=== PATIENT | male | born 1945 | race Caucasian/White ===

== ENCOUNTER 2023-01-08 11:35 | Inpatient (IN) | payer MEDICARE, MEDICAID ==
[~2023-01-08 11:35] MED LIST: Iopamidol-370 76% 500 ML 1 ML ONE
[2023-01-08] MEDS ORDERED: Clopidogrel Bisulfate 75 MG TAB ONE (12:19)
[2023-01-08] MEDS ORDERED: Aspirin 325 MG TAB ONE (12:19)
[2023-01-08 12:25] LABS: #Lymphocytes 0.9 thou/uL (1.20-3.40); #Monocytes 0.5 thou/uL (0.11-0.59); #Neutrophils 10.6 thou/uL (1.40-6.50); %Basophils 0.1 % (0.0-1.0); %Eosinophils 0.4 % (0.0-10.0); %Lymphocytes 7.3 % (21.0-51.0); %Monocytes 4.4 % (0.0-10.0); %Neutrophils 87.8 % (42.0-75.0); Mean Corpuscular Hemoglobin 32.2 pg (27.0-31.0); Mean Corpuscular Volume 94.7 fl (78.0-98.0); Mean Platelet Volume 8.1 fL (7.4-10.4); Platelet Count 199 10x3/uL (130-400); Red Blood Cell (RBC) Count 4.02 mill/uL (4.70-6.10); White Blood Cell (WBC) Count 12.1 10x3/uL (4.8-10.8)
[2023-01-08 12:49] LABS: ALT (SGPT) 15 U/L (8-55); AST (SGOT) 16 U/L (5-34); Albumin 3.5 g/dL (3.4-4.8); Alkaline Phosphatase 63 U/L (40-110); Anion Gap 12 mmol/L (10-20); BUN (Urea Nitrogen) 23 mg/dL (8.4-25.7); Bilirubin, Total 0.9 mg/dL (0.2-1.2); CK (CPK) 73 U/L (30-200); Calc. Creatinine Clearance 0 mL/min (70-130); Calcium 8.2 mg/dL (7.8-10.44); Carbon Dioxide 26 mmol/L (23-31); Chloride 100 mmol/L (98-107); Estimated GFR 89; Globulin 2.3 g/dL (2.4-3.5); Glucose 108 mg/dL (83-110); Lipase 14 U/L (8-78); Protein, Total 5.8 g/dL (5.8-8.1); Sodium 135 mmol/L (136-145)
[2023-01-08 13:07] LABS: CKMB 1.9 ng/mL (0-6.6)
[2023-01-08] MEDS ORDERED: Potassium Chloride 20 MEQ TAB ONE (13:28)
[2023-01-08] MEDS ORDERED: Acetaminophen 325 MG TAB PO PRN (14:25)
[2023-01-08 15:13] LABS: Hemoglobin A1c 5.1 % (4.0-6.0)
[2023-01-08 15:22] LABS: Iron 21 ug/dL (65-175); Iron Binding Capacity, Total 248 mcg/dL (261-462); Magnesium 1.5 mg/dL (1.6-2.6); Phosphorus 2.5 mg/dL (2.3-4.7)
[2023-01-08 15:27] LABS: Bilirubin Negative (Negative); Blood, Urine Negative (Negative); Clarity Clear (Clear); Glucose, Urine (Dipstick) Normal (Negative); Ketone, Urine Negative (Negative); Leukocyte Negative Leu/uL (Negative); Nitrite Negative (Negative); Protein, Urine (Dipstick) Negative (Neg-Trace); Specific Gravity, Urine 1.045 (1.002-1.036); Urobilinogen Normal mg/dL (Less than 2)
[2023-01-08] MEDS ORDERED: Magnesium 2 GM/50 ML(in water) 2 GM in Premix Bag 1 BAG IVPB SCH (15:30)
[2023-01-08 15:36] LABS: Ferritin 307.85 ng/mL (22-322); Thyroid Stimulating Hormone 2.8568 uIU/mL (0.35-4.94)
[2023-01-08] MEDS ORDERED: Iron, Sodium Ferric Gluconate 125 MG in Sodium Chloride 0.9% 100 ML IVPB SCH (17:00)
[2023-01-08] MEDS: Lactated Ringer's 1,000 ML IV SCH (19:39)
[2023-01-08 22:47] VITALS: BMI 25.6
[2023-01-09 05:11] LABS: #Eosinphils 0.2 thou/uL (0.0-0.7); #Lymphocytes 0.9 thou/uL (1.20-3.40); #Monocytes 0.4 thou/uL (0.11-0.59); #Neutrophils 5.2 thou/uL (1.40-6.50); %Basophils 0.5 % (0.0-1.0); %Eosinophils 3.5 % (0.0-10.0); %Lymphocytes 13.3 % (21.0-51.0); %Monocytes 6.3 % (0.0-10.0); %Neutrophils 76.5 % (42.0-75.0); Hemoglobin 13.2 g/dL (14.0-18.0); Mean Corpuscular HGB CONC 34.2 g/dL (32.0-36.0); Mean Corpuscular Hemoglobin 32.7 pg (27.0-31.0); Mean Corpuscular Volume 95.6 fl (78.0-98.0); Platelet Count 185 10x3/uL (130-400); RBC Distribution Width 11.2 % (11.5-14.5); Red Blood Cell (RBC) Count 4.03 mill/uL (4.70-6.10); White Blood Cell (WBC) Count 6.7 10x3/uL (4.8-10.8)
[2023-01-09] MEDS: Lactated Ringer's 1,000 ML IV SCH (05:24)
[2023-01-09 05:41] LABS: Anion Gap 11 mmol/L (10-20); BUN (Urea Nitrogen) 14 mg/dL (8.4-25.7); Calc. Creatinine Clearance 99 mL/min (70-130); Calcium 8.5 mg/dL (7.8-10.44); Carbon Dioxide 26 mmol/L (23-31); Cardiac Risk 2.5 (Less than 4.5); Chloride 105 mmol/L (98-107); Cholesterol 107 mg/dl (< 200 Desired); Estimated GFR 94; Glucose 74 mg/dL (83-110); HDL Cholesterol 43 mg/dL (>60 Neg Risk); LDL Cholesterol, Calculated 54 mg/dL; Magnesium 2.1 mg/dL (1.6-2.6); Potassium 3.3 mmol/L (3.5-5.1); Sodium 139 mmol/L (136-145); Triglycerides 49 mg/dL (Less than 150)
[2023-01-09] MEDS ORDERED: Potassium Chloride 20 MEQ TAB PO SCH (07:00)
[2023-01-09] MEDS ORDERED: Ferrous Sulfate 325 MG TAB PO SCH (07:00)
[2023-01-09] MEDS ORDERED: Iron, Sodium Ferric Gluconate 125 MG in Sodium Chloride 0.9% 100 ML IVPB SCH (08:30)
[2023-01-09] MEDS ORDERED: Aspirin 81 mg Enteric Coated Tablet PO SCH (09:00)
[2023-01-09] MEDS ORDERED: Potassium Chloride 20 MEQ in Premix Bag 1 BAG IVPB SCH (09:00)
[2023-01-09] MEDS ORDERED: Aspirin 300 MG Suppository PR SCH ×2 (13:45→14:00)
[2023-01-09] MEDS ORDERED: Clopidogrel Bisulfate 75 MG TAB PO SCH (14:00)
[2023-01-09] MEDS ORDERED: Acetaminophen 325 MG TAB PO PRN (14:42)
[2023-01-09] MEDS: Atorvastatin Calcium 40 MG TAB PO SCH (21:03)
[2023-01-10 05:59] LABS: #Eosinphils 0.3 thou/uL (0.0-0.7); #Monocytes 0.6 thou/uL (0.11-0.59); #Neutrophils 7.4 thou/uL (1.40-6.50); %Basophils 0.3 % (0.0-1.0); %Eosinophils 3.3 % (0.0-10.0); %Lymphocytes 10.7 % (21.0-51.0); %Monocytes 6.8 % (0.0-10.0); %Neutrophils 78.9 % (42.0-75.0); Hemoglobin 12.7 g/dL (14.0-18.0); Mean Corpuscular HGB CONC 33.8 g/dL (32.0-36.0); Mean Corpuscular Hemoglobin 32.1 pg (27.0-31.0); Mean Corpuscular Volume 94.8 fl (78.0-98.0); Mean Platelet Volume 8.1 fL (7.4-10.4); Platelet Count 198 10x3/uL (130-400); RBC Distribution Width 10.9 % (11.5-14.5); Red Blood Cell (RBC) Count 3.96 mill/uL (4.70-6.10); White Blood Cell (WBC) Count 9.4 10x3/uL (4.8-10.8)
[2023-01-10 06:22] LABS: Anion Gap 13 mmol/L (10-20); BUN (Urea Nitrogen) 17 mg/dL (8.4-25.7); Calc. Creatinine Clearance 93 mL/min (70-130); Calcium 8.5 mg/dL (7.8-10.44); Carbon Dioxide 27 mmol/L (23-31); Chloride 102 mmol/L (98-107); Estimated GFR 93; Glucose 81 mg/dL (83-110); Magnesium 1.9 mg/dL (1.6-2.6); Potassium 3.4 mmol/L (3.5-5.1); Sodium 139 mmol/L (136-145)
[2023-01-10] MEDS ORDERED: Ferrous Sulfate 325 MG TAB PO SCH ×2 (07:00→09:00)
[2023-01-10] MEDS ORDERED: Potassium Chloride 20 MEQ in Premix Bag 1 BAG IVPB SCH (08:00)
[2023-01-10] MEDS ORDERED: Magnesium 2 GM/50 ML(in water) 2 GM in Premix Bag 1 BAG IVPB SCH (08:00)
[2023-01-10] MEDS ORDERED: Aspirin 300 MG Suppository PR SCH (09:00)
[2023-01-10] MEDS ORDERED: Aspirin 81 mg Enteric Coated Tablet PO SCH (09:00)
[2023-01-10] MEDS ORDERED: Clopidogrel Bisulfate 75 MG TAB PO SCH (09:00)
[2023-01-10] MEDS: Aspirin Chewable 81 MG TAB PO SCH (09:24)
[2023-01-10] MEDS: Citalopram 10 MG TAB PO SCH (09:25)
[2023-01-10] MEDS: Clopidogrel Bisulfate 75 MG TAB PO SCH (09:26)
[2023-01-10] MEDS: Atorvastatin Calcium 40 MG TAB PO SCH (21:08)
[2023-01-11 05:57] LABS: Anion Gap 13 mmol/L (10-20); BUN (Urea Nitrogen) 14 mg/dL (8.4-25.7); Calc. Creatinine Clearance 88 mL/min (70-130); Calcium 8.6 mg/dL (7.8-10.44); Carbon Dioxide 27 mmol/L (23-31); Chloride 103 mmol/L (98-107); Estimated GFR 91; Glucose 91 mg/dL (83-110); Potassium 3.2 mmol/L (3.5-5.1); Sodium 140 mmol/L (136-145)
[2023-01-11] MEDS: Potassium Chloride 20 MEQ in Premix Bag 1 BAG IVPB SCH ×2 (06:48→09:02)
[2023-01-11] MEDS ORDERED: FLU VACC QS2022-23(65YR UP)/PF 240 MCG/0.7 ML SYRINGE IM ONE (09:00)
[2023-01-11] MEDS ORDERED: Amlodipine 5 MG TAB PO SCH (09:00)
[2023-01-11] MEDS: Clopidogrel Bisulfate 75 MG TAB PO SCH (09:04)
[2023-01-11] MEDS: Citalopram 10 MG TAB PO SCH (09:07)
[2023-01-11] MEDS: Aspirin Chewable 81 MG TAB PO SCH (09:07)
[2023-01-11 19:19] VITALS: BP 130/83; TEMP 99.2
== END 2023-01-11 19:22 | DRG 65 ==
LOC: ERS 11:35 → ERHOLD 14:01 → NEURO 18:05 → OBSVTOIN 01-09 10:53
PROVIDERS: ADMIT Family Medicine; ATTEND Family Medicine
DX: I63.9 Cerebral infarction, unspecified (principal); G81.94 Hemiplegia, unspecified affecting left nondominant side; I24.8 Other forms of acute ischemic heart disease; I10 Essential (primary) hypertension; E87.6 Hypokalemia; D64.9 Anemia, unspecified; Z66 Do not resuscitate; Z20.822 Contact with and (suspected) exposure to COVID-19; R47.81 Slurred speech; E83.42 Hypomagnesemia; D50.9 Iron deficiency anemia, unspecified; Z88.0 Allergy status to penicillin; Z86.73 Personal history of transient ischemic attack (TIA), and cerebral infarction without residual deficits; Z98.890 Other specified postprocedural states; Z88.8 Allergy status to other drugs, medicaments and biological substances
CPT/HCPCS: 36415; 70450; 70496; 70498; 70551; 71045; 80048; 80053; 80061; 81003; 82550; 82553; 82728; 83036; 83540; 83550; 83690; 83735; 83880; 84100; 84443; 84484; 85025; 93005; 96372; 96374; 96375; G0378; J1650; J2916; J3475; J3480; J3490; J7120; Q9967; U0003; U0005